=== PATIENT | male | born 1970 | race Caucasian/White ===

== ENCOUNTER 2017-04-21 13:09 | Emergency (ER) | payer BC ==
[~2017-04-21] VITALS: Ht 182.9 cm; Wt 94.8 kg
[2017-04-21 13:15] VITALS: BP 127/104
[2017-04-21 14:13] LABS: HEMATOCRIT 42.3 % (38.0-50.0); HEMOGLOBIN 14.6 G/DL (12.5-16.6); MCH 30.9 PG (29.0-34.0); MCHC 34.5 G/DL (30.0-36.0); MCV 89.4 FL (86-99); PLATELET COUNT 251 K/uL (156-360); RBC DIS.WIDTH-CV 12.4 % (11.8-14.6); RBC DIS.WIDTH-SD 41.1 % (39-53); RED BLOOD COUNT 4.73 M/uL (4.00-5.50); WHITE BLOOD COUNT 8.8 K/uL (4.1-10.2)
[2017-04-21 14:22] LABS: CHLORIDE 104 mEq/L (99-109); POTASSIUM 4.5 mEq/L (3.7-5.4); SODIUM 138 mEq/L (136-147)
[2017-04-21 14:24] LABS: GLUCOSE 102 mg/dL (70-99)
[2017-04-21 14:28] LABS: CREATININE 0.8 mg/dL (0.6-1.3); GFR ESTIMATE (CALCULATED) > 59 mL/min/ (58.99-99999)
[2017-04-21 14:29] LABS: UREA NITROGEN (BUN) 12 mg/dL (9-23)
[2017-04-21 14:32] LABS: TROP-I INTERPRETATION NEGATIVE; TROPONIN-I < 0.01 ng/mL (0.0-0.30)
[2017-04-21 16:20] LABS: D-DIMER ELISA < 150.00 ng/mLDDU (<230)
[2017-04-21 17:38] LABS: TROP-I INTERPRETATION NEGATIVE; TROPONIN-I < 0.01 ng/mL (0.0-0.30)
[2017-04-21] MEDS ORDERED: CHERATUSSIN AC473 ML PO (17:54)
== END 2017-04-21 18:02 | disposition home or self-care (01) ==
LOC: EME 13:09
PROVIDERS: Physician Assistant Medical
DX: R07.89 Other chest pain (principal); J45.909 Unspecified asthma, uncomplicated; R05 Cough
CPT/HCPCS: 71046; 80048; 84484; 85027; 85379; 93005; 99281; 99284; J1885